=== PATIENT | female | born 1960 ===

== ENCOUNTER 2018-01-30 12:42 | Emergency (ER) | payer SELFPAY ==
[2018-01-30 13:12] VITALS: BP 120/89
--- NOTE | 2018-01-30 13:45 | UC ---
Ear Complaint HPI - HPI Summary HPI Summary: OVER 2 MONTHS OF POSTERIOR LEFT EAR PAIN. HEARING IS MUTED. NO DISCHARGE OR FEVER. NO URI SX. WENT TO PCP AND PLACED ON AUGMENTIN AND REFERRED TO ENT. PT REPORTS PAIN IS WORSE AND HAS NOT YET HEARD FROM ENT. WAS GIVEN TYLENOL #3 WHICH SHE STATES MAKE HER SICK. IS LOOKING FOR ALTERNATE PAIN MEDICATION. - History of Current Complaint Chief Complaint: UCEar Stated Complaint: PAIN BEHIND LFT EAR Time Seen by Provider: 01/30/18 13:23 Hx Obtained From: Patient, Family/Upsetter - BOYFRIEND Onset/Duration: Gradual Onset, Lasting Weeks, Still Present Severity Initially: Moderate Severity Currently: Moderate Pain Intensity: 9 Pain Scale Used: 0-10 Numeric Aggravating Factors: Other - TOUCH Alleviating Factors: Nothing Associated Signs/Symptoms: Positive: Hearing Loss. Negative: Swelling @, URI Symptoms - Allergies/Home Medications Allergies/Adverse Reactions: Allergies Allergy/AdvReac Type Severity Reaction Status Date / Time codeine Allergy Vomiting Verified 01/30/18 13:12 Home Medications: Home Medications NK [No Home Medications Reported] 01/30/18 [History Confirmed 01/30/18] PMH/Surg Hx/FS Hx/Imm Hx Respiratory History: COPD - Surgical History Surgical History: Yes Surgery Procedure, Year, and Place: LEFT THUMB - Family History Known Family History: Negative: Hypertension - Social History Alcohol Use: None Substance Use Type: None Smoking Status (MU): Current Every Day Smoker Type: Cigarettes Amount Used/How Often: 1 PPD Length of Time of Smoking/Using Tobacco: 30 years Review of Systems Constitutional: Negative ENT: Ear Ache Respiratory: Negative Cardiovascular: Negative Gastrointestinal: Negative Neurological: Headache All Other Systems Reviewed And Are Negative: Yes Physical Exam Triage Information Reviewed: Yes Appearance: Well-Appearing, No Pain Distress, Well-Nourished Vital Signs: Initial Vital Signs Temp 99.8 F 01/30/18 12:59 Pulse 81 01/30/18 12:59 Resp 18 01/30/18 12:59 BP 120/89 01/30/18 12:59 Pulse Ox 100 01/30/18 12:59 Vital Signs Reviewed: Yes Eyes: Positive: Conjunctiva Clear ENT: Positive: Hearing grossly normal, Pharynx normal, TMs normal, Other - No erythema over the mastoid bone, edema of the pinna, or displaced auricle. Exquisitely tender posterior to left ear. No LAD or swelling Neck: Positive: Supple, Nontender, No Lymphadenopathy Respiratory Exam: Normal Cardiovascular Exam: Normal Abdomen Description: Positive: Soft Musculoskeletal: Positive: No Edema Neurological: Positive: Alert Psychological: Positive: Age Appropriate Behavior Skin: Negative: rashes Ear Complaint Course/Dx - Differential Dx/Diagnosis Provider Diagnoses: LEFT POSTERIOR EAR PAIN Discharge - Sign-Out/Discharge Documenting (check all that apply): Discharge - Discharge Plan Condition: Stable Disposition: HOME Patient Education Materials: Earache (ED) Referrals: Abraham Bonilla MD [Medical Doctor] - Additional Instructions: UNCLEAR CAUSE OF YOUR DISCOMFORT. YOUR SYMPTOMS ARE NOT CLEARLY CONSISTENT WITH ACUTE MASTOIDITIS. NO EAR INFECTION ON EXAM TODAY. GIVEN YOUR COMPLAINT OF PAIN AND HEARING LOSS WOULD AGREE WITH YOUR PCP RECOMMENDATION TO SEE ENT. CALL ENT TO SCHEDULE AN APPT FOR F/U. GO TO THE ED WITHOUT FAIL FOR WORSENING PAIN. [facility] [place] [address] MORE AND [place] [phone] - Billing Disposition and Condition Condition: STABLE Disposition: HOME
== END 2018-01-30 13:53 | disposition home or self-care (01) ==
LOC: UCCORT 12:42
DX: H92.02 Otalgia, left ear (principal); Z88.5 Allergy status to narcotic agent; F17.210 Nicotine dependence, cigarettes, uncomplicated
CPT/HCPCS: 99201; G0463